=== PATIENT | male | born 1990 | race Caucasian/White ===

== ENCOUNTER 2017-04-01 23:16 | Emergency (ER) | payer SELFPAY ==
[2017-04-01 23:49] VITALS: BP 122/67; PULSE 66; RESP 20; TEMP 97.9; O2SAT 99
[2017-04-02] MEDS ORDERED: Tetanus/Diphtheria Toxoids 0.5 ml Syringe IM ONE (00:14)
[2017-04-02] MEDS ORDERED: Amoxicillin-Clav 875-125 mg Tab PO STA (00:18)
[2017-04-02] MEDS ORDERED: Amoxicillin-Clav 875-125 mg Tab PO ONE (00:20)
[2017-04-02] MEDS ORDERED: Bacitracin 500 Units/gm Oint Foilpak UD ONE (00:21)
--- NOTE | 2017-04-02 00:35 | C.PDOC ---
History Of Present Illness 26 year old male presents to the ED with complaints of a dog bite to his right hand that occurred at 4am the previous day. Patient states the bite occurred from his own pitbull while trying to break up a fight between dogs. He states he was able to clean his wound but hand began to swell with pain. Patient denies any weakness, or numbness. Patient's tetanus is up to date. Time Seen by Provider: 04/02/17 00:01 Chief Complaint (Nursing): Abnormal Skin Integrity Past Medical History Vital Signs: Last Vital Signs Temp 97.9 F 04/01/17 23:45 Pulse 66 04/01/17 23:45 Resp 20 04/01/17 23:45 BP 122/67 04/01/17 23:45 Pulse Ox 99 04/02/17 06:31 - Medical History PMH: Asthma Family History: States: Unknown Family Hx - Social History Hx Tobacco Use: Yes Hx Alcohol Use: Yes Hx Substance Use: No - Immunization History Hx Tetanus Toxoid Vaccination: Yes Hx Influenza Vaccination: Yes Hx Pneumococcal Vaccination: No Physical Exam - Physical Exam Appears: Non-toxic, No Acute Distress Skin: Warm, Dry, Other (Localized swelling and erythema to mid-right hand dorsal aspect. ) Head: Atraumatic Eye(s): bilateral: Normal Inspection, PERRL, EOMI Chest: No Symmetrical, No Deformity Extremity: Normal ROM, No Tenderness, Capillary Refill (good capillary refill, less than two seconds ), Other (Abrasion injury to the mid-dorsal right hand and right thenar eminence with no active bleeding) Pulses: Left Radial: Normal, Right Radial: Normal Neurological/Psych: Oriented x3, Normal Motor, Normal Sensation, Normal Reflexes , Other (Good strength in extremities ) ED Course And Treatment O2 Sat by Pulse Oximetry: 99 (room air) Progress Note: Wound was irrigated with saline and betadne. Ice was applied to area as well as a bacitracin dressed. Patient was instructed on wound care and discharged. Disposition Counseled Patient/Family Regarding: Diagnosis, Need For Followup, Rx Given - Disposition Referrals: [facility] [Outside] Disposition: HOME/ ROUTINE Disposition Time: 00:32 Condition: STABLE Additional Instructions: Apply warm compress to area Elevate arm Apply antibacterial oint Return to ER if increased redness extending to wrist or fingers, swelling, draining, fever or worse Prescriptions: Amoxicillin/Clavulanate [Augmentin 875 MG-125 MG] 1 tab PO BID #14 tab Ibuprofen [Motrin] 600 mg PO Q6H #30 tab Instructions: Animal Bite (ED) - Clinical Impression Clinical Impression: Animal bite of hand
== END 2017-04-02 00:39 | disposition home or self-care (01) ==
LOC: C.ER 23:16
DX: S61.451A Open bite of right hand, initial encounter (principal); W54.0XXA Bitten by dog, initial encounter; Z72.0 Tobacco use